=== PATIENT | male | born 1970 | race Caucasian/White ===

== ENCOUNTER 2018-05-19 12:39 | Outpatient (CLI) | payer SELFPAY ==
--- NOTE | 2018-05-23 11:33 | W.PREOPHP ---
Date of service: 05/19/18 Assessment and Plan (1) Right rotator cuff tear: Current visit: No Status: Chronic Right rotator cuff repair with biceps tenodesis Details of surgery were discussed with patient as well as risks and pertinent anatomy. All questions were answered. History of Present Illness Chief Complaint: Right shoulder injury Narrative: [place] is a 47-year-old male who is been complaining of right shoulder pain since an injury he sustained back in November. This injury consisted of a instance where he was lifting a watermelon in a slightly elevated position away from his body when he felt a pop in his right shoulder. 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 Since then he is tried conservative treatment including ice and ibuprofen. He also has tried physical therapy which did help to an extent, but he has not gotten back to the point where he can fully use his right arm. He states that the pain overall has gotten a little bit better over time, however this is because he has avoided doing certain things, and is using his left hand for a lot of the activities he normally would use his right arm for. If he does try to use his right arm or gets it into a specific position, he does have significant right shoulder pain. He also has had an MRI which does show a rotator cuff tear of the supraspinatus, and also some biceps pathology on the MRI as well. Because he is failed conservative treatment and the MRI suggest surgical intervention will help his right shoulder, Dr. Jaffe suggest a right shoulder arthroscopy with rotator cuff repair and biceps tenodesis. Wellington is anxious to proceed. Pertinent Surgical Information Patient does have a history of PTSD with no history of anesthesia since this diagnosis. He states that previous to the diagnosis, he did wake up a little bit aggressive. He also has a history of severe psoriasis, for which she is on some immunosuppression medications. Dr. Jaffe is aware of these and is not concerned with the possibility of increased risk of infection with this procedure. Both Dr. Jaffe and [place] have decided to proceed. Patient denies history of hypertension, CVA, [place], angina, COPD, renal or liver disorders, hepatitis, bleeding disorders, diabetes, immune or thyroid disorders. No complications from anesthesia. Review of Systems Constitutional Denies fever(s) ENT Denies dizziness and Denies sore throat Cardiovascular Denies chest pain, Denies palpitations and Denies dyspnea Respiratory Denies dyspnea Gastrointestinal Denies abdominal pain, Denies melena, Denies hematochezia, Denies diarrhea, Denies nausea and Denies vomiting Genitourinary Denies hematuria and Denies dysuria Neurologic Denies dizziness Endocrine Denies palpitations PFSH Medical History Asthma (Chronic) PTSD (post-traumatic stress disorder) (Chronic) Psoriasis (Chronic) Surgical History History of excision of pilonidal cyst (Chronic) Meds Home Medications Medication Instructions Recorded Confirmed Type apremilast 30 mg tablet 30 mg PO BID 04/07/18 04/07/18 History cyclosporine modified 100 mg 200 mg PO BID cap 04/07/18 05/19/18 History capsule fluticasone 44 mcg/actuation HFA 1 inh IH BID 04/07/18 05/19/18 History aerosol inhaler folic acid 1 mg tablet 1 mg PO DAILY 04/07/18 05/19/18 History albuterol sulfate [ProAir HFA] 2 puff INHALATION Q6H PRN 05/19/18 05/19/18 History methotrexate sodium 8 tab PO .WEEKLY 05/19/18 05/19/18 History Allergies Allergy/AdvReac Type Severity Reaction Status Date / Time animal dander Allergy Verified 05/19/18 13:01 house dust Allergy Verified 05/19/18 13:01 mold Allergy Verified 05/19/18 13:01 pollen extracts Allergy Verified 05/19/18 13:01 cephalexin [From Keflex] AdvReac Intermediate YEAST Verified 05/19/18 13:01 INFECTION Exam [facility] Head: normocephalic and atraumatic General nose exam: no nasal discharge Throat: uvula midline and no uvular edema Other: soft palate rises symmetrically, no erythema Eyes Conjunctivae: conjunctivae normal Sclera: sclerae normal Pupils: PERRL Resp Effort & Inspection: normal respiratory effort Auscultation: clear to auscultation bilaterally and no wheezes Cardio Rate: regular rate Rhythm: regular rhythm Heart Sounds: S1 normal, S2 normal and no murmurs
--- NOTE | 2018-05-23 11:42 | HPE_ITS ---
Date of service: 05/19/18 Assessment and Plan (1) Right rotator cuff tear: Current visit: No Status: Chronic Right rotator cuff repair with biceps tenodesis Details of surgery were discussed with patient as well as risks and pertinent anatomy. All questions were answered. History of Present Illness Chief Complaint: Right shoulder injury Narrative: Wellington is a 47-year-old male who is been complaining of right shoulder pain since an injury he sustained back in November. This injury consisted of a instance where he was lifting a watermelon in a slightly elevated position away from his body when he felt a pop in his right shoulder. 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 Since then he is tried conservative treatment including ice and ibuprofen. He also has tried physical therapy which did help to an extent, but he has not gotten back to the point where he can fully use his right arm. He states that the pain overall has gotten a little bit better over time, however this is because he has avoided doing certain things, and is using his left hand for a lot of the activities he normally would use his right arm for. If he does try to use his right arm or gets it into a specific position, he does have significant right shoulder pain. He also has had an MRI which does show a rotator cuff tear of the supraspinatus, and also some biceps pathology on the MRI as well. Because he is failed conservative treatment and the MRI suggest surgical intervention will help his right shoulder, Dr. aJffe suggest a right shoulder arthroscopy with rotator cuff repair and biceps tenodesis. [place] is anxious to proceed. Pertinent Surgical Information Patient does have a history of PTSD with no history of anesthesia since this diagnosis. He states that previous to the diagnosis, he did wake up a little bit aggressive. He also has a history of severe psoriasis, for which she is on some immunosuppression medications. Dr. Jaffe is aware of these and is not concerned with the possibility of increased risk of infection with this procedure. Both Dr. Jaffe and [place] have decided to proceed. Patient denies history of hypertension, CVA, [place], angina, COPD, renal or liver disorders, hepatitis, bleeding disorders, diabetes, immune or thyroid disorders. No complications from anesthesia. Review of Systems Constitutional Denies fever(s) ENT Denies dizziness and Denies sore throat Cardiovascular Denies chest pain, Denies palpitations and Denies dyspnea Respiratory Denies dyspnea Gastrointestinal Denies abdominal pain, Denies melena, Denies hematochezia, Denies diarrhea, Denies nausea and Denies vomiting Genitourinary Denies hematuria and Denies dysuria Neurologic Denies dizziness Endocrine Denies palpitations PFSH Medical History Asthma (Chronic) PTSD (post-traumatic stress disorder) (Chronic) Psoriasis (Chronic) Surgical History History of excision of pilonidal cyst (Chronic) Meds Home Medications Medication Instructions Recorded Confirmed Type apremilast 30 mg tablet 30 mg PO BID 04/07/18 04/07/18 History cyclosporine modified 100 mg 200 mg PO BID cap 04/07/18 05/19/18 History capsule fluticasone 44 mcg/actuation HFA 1 inh IH BID 04/07/18 05/19/18 History aerosol inhaler folic acid 1 mg tablet 1 mg PO DAILY 04/07/18 05/19/18 History albuterol sulfate [ProAir HFA] 2 puff INHALATION Q6H PRN 05/19/18 05/19/18 History methotrexate sodium 8 tab PO .WEEKLY 05/19/18 05/19/18 History Allergies Allergy/AdvReac Type Severity Reaction Status Date / Time animal dander Allergy Verified 05/19/18 13:01 house dust Allergy Verified 05/19/18 13:01 mold Allergy Verified 05/19/18 13:01 pollen extracts Allergy Verified 05/19/18 13:01 cephalexin [From Keflex] AdvReac Intermediate YEAST Verified 05/19/18 13:01 INFECTION Exam [facility] Head: normocephalic and atraumatic General nose exam: no nasal discharge Throat: uvula midline and no uvular edema Other: soft palate rises symmetrically, no erythema Eyes Conjunctivae: conjunctivae normal Sclera: sclerae normal Pupils: PERRL Resp Effort & Inspection: normal respiratory effort Auscultation: clear to auscultation bilaterally and no wheezes Cardio Rate: regular rate Rhythm: regular rhythm Heart Sounds: S1 normal, S2 normal and no murmurs
== END 2018-05-19 12:59 ==
PROVIDERS: PCP Nurse Practitioner Family; Visit Provider Student in an Organized Health Care Education/Training Program
DX: S46.011D Strain of muscle(s) and tendon(s) of the rotator cuff of right shoulder, subsequent encounter (principal); Z01.818 Encounter for other preprocedural examination
CPT/HCPCS: NC

== ENCOUNTER 2018-05-25 09:12 | Day surgery (SDC) | payer OTHER, SELFPAY ==
[2018-05-25 09:50] VITALS: BP 142/87; PULSE 89; RESP 18; TEMP 36.3; O2SAT 97
[2018-05-25] MEDS: Lactated Ringers 1,000 ML 80 ML IV (10:15)
[2018-05-25] MEDS: Midazolam 2 MG/2 ML VIAL IJ (12:45)
[2018-05-25] MEDS: Bupivacaine LIPOSOME/PF 133 MG/10 ML VIAL IJ (12:45)
[2018-05-25] MEDS: Bupivacaine 0.5% Pres-Free 10 ML VIAL IJ (12:45)
--- NOTE | 2018-05-25 13:50 | PDOC.ANES ---
Date of service: 05/25/18 Time of Service: 13:50 Anesthesia Note Report Anesthesia Note: Michael presented for rotator cuff repair today in his usual health with no complaints. His right Interscalene nerve block was completed and it was then noted that his HR was increased and irregular. He denies chest pain, SOB, N/V, and is not diaphoretic. He states he feels completely normal and is without symptoms. 12 Lead ECG confirmed new onset atrial fibrillation. I spoke with the patients PCP (Mazin Perla at [facility]) and plan made. She will see patient in her office on at 1300. 12 Lead as well as labs to include BMP, TSH and magnesium level will be sent to her office and she will make decisions from there. He will also be started on Aspirin 81mg QD and Metoprolol Tartrate 25mg every 12 hours to start today. Pt. advised to call 911 or present to nearest Emergency Room if he develops chest pain, SOB, N/V, syncope or pre-syncopal symptoms and he understands instructions. Patients father also present for discussion.
--- NOTE | 2018-05-25 13:56 | W.PM.DSUDISC ---
Discharge Plan Disposition Patient Disposition: HOME Condition: Good Discharge Details Reason For Visit: (R) RTC TEAR Attending Provider: Nickolas Jaffe Primary Care Provider: Mazin Perla Home Meds and New Rx's Prescriptions: New metoprolol tartrate 25 mg tablet 25 mg PO BID Qty: 60 RF: 0 aspirin 81 mg tablet,delayed release (DR/EC) 81 mg PO DAILY Qty: 30 RF: 3 Continue fluticasone [Flovent HFA] 44 mcg/actuation HFA aerosol inhaler 1 inh IH BID RF: 0 folic acid 1 mg tablet 1 mg PO DAILY RF: 0 cyclosporine modified 100 mg capsule 200 mg PO BID RF: 0 apremilast [Otezla] 30 mg tablet 30 mg PO BID RF: 0 methotrexate sodium 2.5 mg Tablet 8 tab PO .WEEKLY RF: 0 albuterol sulfate [ProAir HFA] 90 mcg/actuation Hfa Aerosol Inhaler 2 puff INHALATION Q6H PRNRF: 0 ibuprofen 800 mg Tablet 800 mg PO TID PRNRF: 0 Discharge Instructions Additional Instructions: Unfortunately, you developed an irregular heart rhythm - atrial fibrillation. This stopped us from performing your surgery today. You will start on Metoprolol and Aspirin for treatment and see your PCP on at 1pm. You may use a sling for support of the arm until the block wears off. After testing is complete, we will move forward with the surgery. Stand Alone Forms: Anes.Nerve Block Instructions, Reynaldo Regan (DSU) Equipment/Supplies: Sling Activity:: Activity as Tolerated Diet:: As Tolerated Discharge Orders Discharge Orders: Discharge Order (Routine); Ordered 05/25/18 Ordered By: Nickolas Jaffe DS: Diagnosis Discharge Diagnosis (1) Atrial fibrillation: Status: Acute Asessment and Plan: Elicited during preoperative evaluation on day of surgery for R shoulder, 05/25/18
--- NOTE | 2018-05-25 13:57 | ANES_ITS ---
Date of service: 05/25/18 Time of Service: 13:50 Anesthesia Note Report Anesthesia Note: Michael presented for rotator cuff repair today in his usual health with no complaints. His right Interscalene nerve block was completed and it was then noted that his HR was increased and irregular. He denies chest pain, SOB, N/V, and is not diaphoretic. He states he feels completely normal and is without symptoms. 12 Lead ECG confirmed new onset atrial fibrillation. I spoke with the patients PCP (Mazin Perla at [facility]) and plan made. She will see patient in her office on at 1300. 12 Lead as well as labs to include BMP, TSH and magnesium level will be sent to her office and she will make decisions from there. He will also be started on Aspirin 81mg QD and Metoprolol Tartrate 25mg every 12 hours to start today. Pt. advised to call 911 or present to nearest Emergency Room if he develops chest pain, SOB, N/V, syncope or pre-syncopal symptoms and he understands instructions. Patients father also present for discussion.
[2018-05-25] MEDS: Metoprolol 25 MG TAB PO (14:15)
[2018-05-25] MEDS: Aspirin 81 MG CHEW PO (14:15)
[2018-05-25 14:48] LABS: Anion Gap 11.2 mmol/L (3-11); BUN 10 mg/dL (7-18); CO2 23.8 mmol/L (21.0-32.0); CREATININE 0.86 mg/dL (0.70-1.30); Calcium 8.6 mg/dL (8.5-10.1); Chloride 104 mmol/L (98-107); Glucose 188 mg/dL (70-100); Magnesium 1.8 mg/dL (1.8-2.4); Sodium 139 mmol/L (136-145)
[2018-05-25 15:37] LABS: Troponin I < 0.02 ng/mL (0.00-0.06)
== END 2018-05-25 14:43 | disposition home or self-care (01) ==
PROVIDERS: Nurse Anesthetist, Certified Registered; PCP Nurse Practitioner Family; Visit Provider Student in an Organized Health Care Education/Training Program
DX: M75.101 Unspecified rotator cuff tear or rupture of right shoulder, not specified as traumatic (principal); Z53.09 Procedure and treatment not carried out because of other contraindication; I48.91 Unspecified atrial fibrillation
CPT/HCPCS: 29827; 36415; 76942; 80048; 83735; 84443; 84484; 99211; J2250; L3650

== ENCOUNTER 2018-05-25 15:10 | Emergency (ER) | payer OTHER, SELFPAY ==
[2018-05-25 15:15] VITALS: BP 141/92; PULSE 114; RESP 14; TEMP 36.7; O2SAT 95
--- NOTE | 2018-05-25 15:31 | NUR.NOTE ---
Nursing Note: 1454 PT PREVIOUSLY DISCHARGED FROM [facility] S/P ANTICIPATED SURGERY FOR WHICH WAS CANCELLED DUE TO NEW AFIB. SEE NOTES. PRIOR TO DISCHARGE PT RECEIVED METOPROLOL 25 MG PO AND ASPIRIN 81 MG PO ORDERED BY THE MD. VSS STABLE 140/83, HR 87, RA SAT 95%, T36.4, RR 18. PT DRESSED SELF AND GOT READY FOR DISCHARGE FROM [facility]. ESCORTED PT OUT TO [facility]. At 1454 PT SHOWED BACK UP AT THE [facility] WITH SOB AND 5/10 CHEST PAIN. PT WHEELED BACK INTO UNIT WHERE HE WAS HOOKED UP TO MONITORS AND VS TAKEN T36, 135/94, RR 24, HR IRREGULAR 85-125, RA SAT 97%. JD LUMP ROLLER NOTIFIY AND CAME TO EVALUATE PT. IT WAS DECIDED THE PT SHOULD BE EVALUATED IN THE ED. PT TRANSPORTED TO ED VIA STRETCHER FOR FURTHER EVALUATION.
--- NOTE | 2018-05-25 15:35 | DI.RAD_ITS ---
SYMPTOMS/DIAGNOSIS: NEW ONSET A-FIB, PALPITATIONS PA AND LATERAL CHEST: There are no prior comparison exams. The lungs are suboptimally inflated, but appear clear. The heart size is normal. IMPRESSION: Negative chest x-ray.
[2018-05-25 15:48] VITALS: RESP 18
[2018-05-25 15:52] LABS: Abs Immature Grans 0.22 k/cumm (0.0-0.09); Absolute Basophil Count 0.04 k/cumm (0.0-0.2); Absolute Eosinophil Count 0.26 k/cumm (0.0-0.7); Absolute Monocyte Count 1.29 k/cumm (0.11-0.7); Basophils % 0.3; Eosinophils % 1.9; HGB 17.3 g/dL (13.5-17.5); Immature Grans % 1.6; Lymphocytes % 16.2; Mean Corp. HGB Concentration 35.3 g/dL (32.0-36.0); Mean Corpuscular Hemoglobin 32.2 pg (27.0-33.0); Mean Corpuscular Volume 91.2 fL (80-95); Mean Platelet Volume 9.6 fL (8.0-11.0); Monocytes % 9.3; Neutrophils % 70.7; Platelet Count 269 x1000/uL (130-400); RBC 5.37 m/cumm (4.50-6.00); RBC Distribution Width 13.8 % (11.8-14.1); White Blood Cell Count 13.92 k/cumm (4.4-10.8)
--- NOTE | 2018-05-25 15:54 | ED.GENADUL_ITS ---
Discharge Plan Disposition Patient Disposition: HOME Condition: Fair Discharge Details Chief Complaint: Chest Pain Clinical Impression: Atrial fibrillation Primary Care Provider: Mazin Perla ED Provider: Shruthi Landers Home Meds and New Rx's Prescriptions: New apixaban [Eliquis] 5 mg tablet 5 mg PO BID Qty: 20 RF: 0 Continue fluticasone [Flovent HFA] 44 mcg/actuation HFA aerosol inhaler 1 inh IH BID RF: 0 folic acid 1 mg tablet 1 mg PO DAILY RF: 0 cyclosporine modified 100 mg capsule 200 mg PO BID RF: 0 apremilast [Otezla] 30 mg tablet 30 mg PO BID RF: 0 methotrexate sodium 2.5 mg Tablet 8 tab PO .WEEKLY RF: 0 albuterol sulfate [ProAir HFA] 90 mcg/actuation Hfa Aerosol Inhaler 2 puff INHALATION Q6H PRNRF: 0 metoprolol tartrate 25 mg tablet 25 mg PO BID Qty: 60 RF: 0 Discontinued ibuprofen 800 mg Tablet 800 mg PO TID PRNRF: 0 aspirin 81 mg tablet,delayed release (DR/EC) 81 mg PO DAILY Qty: 30 RF: 3 Discharge Instructions Instructions: Atrial Fibrillation (ED) Additional Instructions: Please take Eliquis as prescribed for anticoagulation. Metoprolol as prescribed by primary care provider for rate control. Please keep upcoming appointment with primary care. Do not take antiinflammatories while on anticoagulant (no Ibuprofen, Motrin, Aleve, etc.) If you develop chest pain, shortness of breath, headache, visual changes, please seek care urgently once again. Please take care while on anticoagulation as this does increase your risk of bleeding. If you have evidence of bleeding seek care urgently once again. Referrals: Mazin Perla [Primary Care Provider] - Discharge Data Discharge Date/Time-TO BE ENTERED AT DEPARTURE: 05/25/18 18:44 Medical Decision Making <John Reyes NP - Last Filed: 05/27/18 09:41> ECG is read as a-fib. Plan to establish IV and evaluate labs including TSH, and chest x-ray. Will administer Klonopin for the anxiety. After lab work returns we will consult cardiology for starting Cardizem and anticoagulation. ECG Data Attestation: I personally reviewed and interpreted this ECG (s) as follows: Interpretation: Reviewed with Dr. Jean. A-fib with no acute ST changes. <TALA Pan - Last Filed: 05/25/18 22:54> Patient 39-year-old male, care transition myself by Gabe Reyes NP, for evaluation of new onset atrial fibrillation. Patient reports around 1:00 this afternoon, while receiving a nerve block prior to right shoulder surgery, he developed chest pressure and palpitations. At the time of my evaluation, patient reports that he is completely a symptomatic. He is feeling quite well. No chest pressure, no feeling of palpitations. The symptoms initially began patient was noted to be in atrial fibrillation. No previous diagnosis of atrial fibrillation. At this point, patient continues to be in atrial fibrillation on the monitor with a heart rate around 105. Patient's medical history is significant for anxiety, psoriasis, asthma, PTSD. 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 Reports that while he has had chest discomfort with anxiety historically, he has never had palpitations that he experienced today. Patient was turned over to myself with labs pending. Patient's white count is noted to be minimally elevated but otherwise no acute findings. Troponin is less than 0.02. TSH is normal. Patient is going for a chest x-ray at this time. Will consult cardiology to discuss. CXR reviewed by radiologist. Lung min are clear bilaterally. No focal pulmonary consolidation is present. The cardiac silhouete is within normal limits. Costophrenic angles are sharp. Bony structures appear unremarkable. Consulted with Dr. Baca. He questioned if cardioversion could be preformed. However, as the patient was noted to be in afib on the monitor when he first presented and had been asymptomaic prior to this, I am unable to determine onset of afib. He is currently still in afib but is asymptomatic. Dr. Baca advised that the Metoprolol that patient was placed on by PCP is appropriate. He did advise beginning anticoagulation so that he may be cardioverted in the future. Advised f/u with cardiology in 2 weeks. Patient placed on primary care physician list for cadiology follow up. Discussed recommendations with the patient. We discussed risks/benefits of anticoagulation. Patient will begin on Eliquis. Discussed what to avoid when on this medication. He already has appointment in 2 days with PCP. Will discharge with medication for tonight and tomorrow morning. He was given strict return precautions. At this time, HR is around 100, he continues to be asymptomatic. All of his questions and concerns were addressed, he is in agreement with this plan. HPI <John Reyes NP - Last Filed: 05/27/18 09:41> General Date/Time Provider Initiated Documentation: 05/25/18 15:24 . Limitations to Documentation: no limitations . Information obtained by: patient and family . History of Present Illness 47 year old M presents to the emergency department with the chief complaint of palpitations with chest pressure., HPI Narrative: 47 y/o male here with c/o palpitations and chest pressure. Michael was brought over by anesthesia after he was noted to convert into a- fib prior to his OR case. He was in today to have shoulder surgery. He was prepped with nerve block. Shortly after as noted to be in a-fib. He has an underlying anxiety disorder for which he takes Klonopin for and which he has not needed for over a year. He tells me this feels different than his usual panic attack. He does not particularly care how the Klonopin makes him feel, basically drowsy. He denies cp and describes it more like pressure with associated sob. He denies any cardiac history. His pcp was called and Metoprolol was ordered which he did have PO while with anesthesia. Anesthesia reported he became panicky once leaving the hospital when he went out into the cold air. Pt reports being panicky the entire visit. Pt brought in to Ed for new onset AFib. Related Data Home Medications Medication Instructions Recorded Confirmed apremilast 30 mg tablet 30 mg PO BID 04/07/18 05/25/18 cyclosporine modified 100 mg 200 mg PO BID cap 04/07/18 05/25/18 capsule fluticasone 44 mcg/actuation HFA 1 inh IH BID 04/07/18 05/25/18 aerosol inhaler folic acid 1 mg tablet 1 mg PO DAILY 04/07/18 05/25/18 albuterol sulfate [ProAir HFA] 2 puff INHALATION Q6H PRN 05/19/18 05/25/18 methotrexate sodium 8 tab PO .WEEKLY 05/19/18 05/25/18 apixaban [Eliquis] 5 mg PO BID #20 tab 05/25/18 metoprolol tartrate 25 mg PO BID #60 tab 05/25/18 05/25/18 Previous Rx's Medication Instructions Recorded apixaban [Eliquis] 5 mg PO BID #20 tab 05/25/18 metoprolol tartrate 25 mg PO BID #60 tab 05/25/18 Allergies Allergy/AdvReac Type Severity Reaction Status Date / Time amoxicillin [From Augmentin] Allergy Intermediate Unverified 05/25/18 15:23 clavulanic acid Allergy Intermediate Unverified 05/25/18 15:23 [From Augmentin] animal dander Allergy Verified 05/19/18 13:01 house dust Allergy Verified 05/19/18 13:01 mold Allergy Verified 05/19/18 13:01 pollen extracts Allergy Verified 05/19/18 13:01 cephalexin [From Keflex] AdvReac Intermediate YEAST Verified 05/19/18 13:01 INFECTION General Stated Complaint: Chest Pain MALINI: 3 Review of Systems <John Reyes NP - Last Filed: 05/27/18 09:41> Eyes Reports system reviewed and no additional complaints, except as docu ENT Reports system reviewed and no additional complaints, except as docu Cardiovascular Reports palpitations Respiratory Reports other (sob) Gastrointestinal Reports system reviewed and no additional complaints, except as docu Genitourinary Reports system reviewed and no additional complaints, except as docu Musculoskeletal Reports system reviewed and no additional complaints, except as docu Integumentary/Breasts Reports system reviewed and no additional complaints, except as docu Neurologic Reports system reviewed and no additional complaints, except as docu Psychiatric Reports system reviewed and no additional complaints, except as docu Endocrine Reports palpitations Hematologic/Lymphatic Reports system reviewed and no additional complaints, except as docu Exam <John Reyes NP - Last Filed: 05/27/18 09:41> Const General: cooperative, comfortable and no acute distress Nutritional Appearance: overweight Orientation: alert, awake and oriented x3 HENMT Head: atraumatic Ears: hearing grossly normal bilaterally and external ears normal General nose exam: external nose normal and nares normal Mouth: moist mucous membranes Eyes General: appearance normal, both eyes and all related structures Neck Neck: normal visual inspection and full ROM Chest Chest: normal inspection of the chest Resp Auscultation: bronchovesicular breath sounds bilaterally Cardio Jugular venous pressure: no JVD Rate: regular rate Rhythm: abnormal rhythm irregularly irregular Heart Sounds: no murmurs GI Inspection: normal to inspection Palpation: soft and nontender Back/Spine/Pelvis Back: no CVA tenderness and No back tenderness Skin General skin exam: no rashes or lesions noted Neuro General: alert, awake, oriented x3 and gait normal Extrem General: normal to inspection, full ROM and normal capillary refill Psych Appearance: grossly normal Mental Status: mental status grossly normal Speech and Movement: speech and movement normal Mood: anxious mood Affect: normal affect Attitude: cooperative Thought Process: normal Thought Content: normal Insight: insight good Judgment: judgment good Course <John Reyes NP - Last Filed: 05/27/18 09:41> Vital Signs Temperature 36.7 C 05/25/18 15:15 Pulse 114 H 05/25/18 15:15 Respiratory Rate 14 05/25/18 15:15 Blood Pressure 141/92 H 05/25/18 15:15 Pulse Oximetry 95 05/25/18 15:15 Temperature 36.7 C 05/25/18 15:15 Temperature Source Temporal Artery Scan 05/25/18 15:15 Pulse 114 H 05/25/18 15:15 Respiratory Rate 14 05/25/18 15:15 Blood Pressure 141/92 H 05/25/18 15:15 Blood Pressure Position Sitting 05/25/18 15:15 Pulse Oximetry 95 05/25/18 15:15 Oxygen Delivery Method Room Air 05/25/18 15:15 Oxygen Flow Rate 0 05/25/18 15:15 Pain Level 0 05/25/18 15:15 Sign Out <John Reyes NP - Last Filed: 05/27/18 09:41> Sign Out Data: Sign Out Comment: Discussed with Shruthi GARZA. She agrees to disposition patient. Last updated by John Reyes NP at 05/25/18 16:24
[2018-05-25 16:00] LABS: Absolute Lymphocyte Count 2.26 k/cumm (1.2-3.4); Absolute Neutrophil Count 9.84 k/cumm (1.2-6.7)
[2018-05-25 16:13] LABS: TSH 2.32 uIU/mL (0.358-3.74)
[2018-05-25 16:18] LABS: ALT 130 U/L (12-78); AST 66 U/L (15-37); Albumin 3.4 g/dL (3.4-5.0); Alkaline Phosphatase 66 U/L (46-116); Anion Gap 10.6 mmol/L (3-11); BUN 10 mg/dL (7-18); Bilirubin, Total 0.7 mg/dL (0.2-1.0); CO2 25.4 mmol/L (21.0-32.0); CREATININE 0.93 mg/dL (0.70-1.30); Calcium 8.6 mg/dL (8.5-10.1); Chloride 103 mmol/L (98-107); Glucose 222 mg/dL (70-100); Magnesium 1.8 mg/dL (1.8-2.4); NT-proBNP 234 pg/mL; Sodium 139 mmol/L (136-145)
[2018-05-25 16:19] LABS: D-Dimer 233 ng/mlFEU (<500); Troponin I < 0.02 ng/mL (0.00-0.06)
[2018-05-25 17:05] VITALS: RESP 20
--- NOTE | 2018-05-25 17:21 | DI.VRAD_ITS ---
EXAM: XR Chest, 2 Views EXAM DATE/TIME: 05/25/2018 3:37 PM CLINICAL HISTORY: 47 years old, male; Signs and symptoms; Other: New onset afib palpitoons TECHNIQUE: XR of the chest, 2 views. COMPARISON: No relevant prior studies available. FINDINGS: The lung min are clear bilaterally. No focal pulmonary consolidation is present. The cardiac silhouette is within normal limits. The costophrenic angles are sharp. The bony structures appear unremarkable. IMPRESSION: No evidence of acute cardiopulmonary disease. Dictated and Authenticated by: Charly Guajardo MD. Ordering:DEB RESENDEZ MD
[2018-05-25] MEDS: Apixaban 5 MG TAB 10 MG PO (18:47)
[2018-05-25 18:48] VITALS: BP 160/98; PULSE 78; RESP 18
[2018-05-25] MEDS: Metoprolol 25 MG TAB 50 MG PO (18:48)
== END 2018-05-25 18:44 | disposition home or self-care (01) ==
PROVIDERS: Nurse Practitioner Family; Emergency Provider Physician Assistant; PCP Nurse Practitioner Family
DX: I48.91 Unspecified atrial fibrillation (principal)
CPT/HCPCS: 36415; 80053; 93005; 96360; 96361; 99285; 71046; 83735; 83880; 84443; 84484; 85025; 85379; 93010

== ENCOUNTER 2018-06-09 09:59 | Outpatient (CLI) | payer MEDICAID, SELFPAY | END 2018-06-09 10:19 | PROVIDERS: PCP Nurse Practitioner Family; Visit Provider Student in an Organized Health Care Education/Training Program | DX: I48.0 Paroxysmal atrial fibrillation (principal); I10 Essential (primary) hypertension; F17.200 Nicotine dependence, unspecified, uncomplicated | CPT/HCPCS: 93005; 93010 ==

== ENCOUNTER 2018-07-02 08:00 | Outpatient (CLI) | payer MEDICAID, SELFPAY ==
--- NOTE | 2018-08-03 20:54 | CER_ITS ---
Date of Dictation: August 03, 2018 Study Indication: Atrial fibrillation. Requesting Provider: Oseas Baca M.D. Findings: The patient was monitored for 30 days. The patient was in atrial fibrillation 19% of the time. Average heart rate in atrial fibrillation 100 bpm. Longest episode lasted 7 hours and 28 minutes. There were no pauses greater than 3 seconds. There was no higher degree heart block. There were 9 patient events. Five events correlated with atrial fibrillation with rapid ventricular response. All other events did not correlate with arrhythmias. Final Interpretation: Paroxysmal atrial fibrillation. Rapid ventricular response only during the first part of the recording with average heart rate in the 110's. Good rate control towards the end of the recording with average heart rate in the 80's.
== END 2018-07-02 08:20 ==
PROVIDERS: PCP Nurse Practitioner Family; Visit Provider Student in an Organized Health Care Education/Training Program
DX: I48.0 Paroxysmal atrial fibrillation (principal); I47.2 Ventricular tachycardia
CPT/HCPCS: 93270

== ENCOUNTER 2018-08-11 08:11 | Outpatient (CLI) | payer MEDICAID, SELFPAY ==
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
== END 2018-08-11 08:31 ==
PROVIDERS: PCP Nurse Practitioner Family; Visit Provider Student in an Organized Health Care Education/Training Program
DX: M75.121 Complete rotator cuff tear or rupture of right shoulder, not specified as traumatic (principal); S46.011D Strain of muscle(s) and tendon(s) of the rotator cuff of right shoulder, subsequent encounter; Z01.818 Encounter for other preprocedural examination
CPT/HCPCS: NC

== ENCOUNTER 2018-08-17 05:53 | Day surgery (SDC) | payer OTHER, SELFPAY ==
[2018-08-17] VITALS (7 sets, daily range): BP systolic 105–132; BP diastolic 58–83; PULSE 60–72; RESP 18–21; TEMP 36.2–36.8; O2SAT 93–100
[2018-08-17] MEDS: Lactated Ringers 1,000 ML 80 ML IV ×2 (06:42→09:38)
--- NOTE | 2018-08-17 07:18 | W.PM.DSUDISC ---
Discharge Plan Disposition Patient Disposition: HOME Condition: Good Discharge Details Reason For Visit: Right Rotator Cuff Tear Attending Provider: Nickolas Jaffe Primary Care Provider: Mazin Perla Home Meds and New Rx's Prescriptions: New celecoxib 200 mg capsule 200 mg PO BID PRN (Reason: pain) Qty: 60 RF: 1 acetaminophen 500 mg capsule 1,000 mg PO Q8H PRN (Reason: pain) Qty: 90 RF: 0 oxycodone 5 mg tablet 5 mg PO Q4H Qty: 18 RF: 0 Continued folic acid 1 mg tablet 1 mg PO DAILY RF: 0 metoprolol tartrate 25 mg tablet 50 mg PO HS RF: 0 ProAir HFA 90 mcg/actuation Hfa Aerosol Inhaler 2 puff INHALATION Q6H PRNRF: 0 Eliquis 5 mg tablet 5 mg PO BID Qty: 20 RF: 0 metformin 500 mg Tablet 500 mg PO BID RF: 0 diltiazem HCl 120 mg Capsule,Extended Release 12 Hr 120 mg PO DAILY RF: 0 methotrexate 2.5 mg/mL Solution 0.8 ml .QWEEKLY RF: 0 metoprolol succinate 100 mg Cap,Sprinkle,Er 24hr Dose Pack 100 mg PO DAILY RF: 0 Advair HFA 230-21 mcg/actuation Hfa Aerosol Inhaler 2 puff Inhalation BID RF: 0 Discharge Instructions Additional Instructions: Celebrex (Celecoxib) is a specialized anti-inflammatory. If it is not covered, you may take Ibuprofen 400-600mg every 8 hours as needed. Please be mindful that the use of an anti-inflammatory with your blood thinner can result in an increased bleeding risk. This risk is quite low but if you have any signs of blood in your sputum or bowel movement, you should stop the anti-inflammatory and call myself or your PCP. If you have any bleeding from a cut or other that won't stop plese proceed to the Emergency Department. Stand Alone Forms: Ld ricketts/RCR Referrals: Nickolas Jaffe MD [ [facility] STAFF PHYSICIAN] - Equipment/Supplies: Sling Activity:: Stay in Sling Remove Dressings/Wound Care:: 72 hours Shower/Bathe:: 72 hours Diet:: As Tolerated Discharge Orders Discharge Orders: Discharge Order (Routine); Ordered 08/17/18 Ordered By: Nickolas Jaffe DS: Diagnosis Discharge Diagnosis (1) Right rotator cuff tear: Status: Chronic
[2018-08-17] MEDS: Bupivacaine 0.5% Pres-Free 30 ML VIAL (07:22)
[2018-08-17] MEDS: Bupivacaine LIPOSOME/PF 133 MG/10 ML VIAL IJ ×2 (07:22→08:58)
[2018-08-17] MEDS: CLINDAMYCIN 600 MG/50 ML BAG 100 MG IVPB (07:50)
[2018-08-17] MEDS: Bupivacaine 0.25% Pres-Free 30 ML VIAL (08:58)
--- NOTE | 2018-08-17 13:18 | NUR.NOTE ---
Nursing Note:1319: THIS RN CLARIFIED WITH DR. BOND FOR PT. TO CONTINUE HIS ELIQUIS, AND NOT TO TAKE DISCHARGE INSTRUCTION INDICATED ASPIRIN 81 MG. THIS RN SPOKE DIRECTLY WITH PT. VIA PHONE TO CONFIRM THIS. AT 1317 08/17/18.
--- NOTE | 2018-08-17 13:21 | ROE_ITS ---
DATE OF SURGERY: August 17, 2018 PREOPERATIVE DIAGNOSIS: Right rotator cuff tear. POSTOPERATIVE DIAGNOSIS: Same. SURGERY: Arthroscopic right rotator cuff repair of subscapularis and supraspinatus, open subpectoral biceps tenodesis. SURGEON: Nickolas Jaffe M.D. STEEL PICKLER: Iker Portillo ANESTHESIA: Interscalene nerve block with general. ESTIMATED BLOOD LOSS: Minimal. FINDINGS: There was a notable tear in the upper third of the subscapularis tendon with medial displa cement of the biceps tendon. A single horizontal mattress suture was placed, reapproximating the upp ers subscapularis tendon to the lesser tuberosity. The supraspinatus also had an oblique-running tea r through its middle fibers and this was repaired at both the medial and lateral row. An open subpec feliz biceps tenodesis was performed. COMPLICATIONS: None. DISPOSITION: The patient was awakened from anesthesia and taken to the PACU in a stable condition. INDICATION FOR PROCEDURE: Wellington is a 47-year-old who has had persistent right shoulder pain and dysf unction, including weakness. MRI confirmed a rotator cuff tear. When I saw him in initial consultat ion he had failed conservative treatment options and desired to proceed with a rotator cuff repair. He was brought into the hospital for the rotator cuff repair back in April, but unfortunately deve loped atrial fibrillation prior to proceeding to the operating room. Therefore, the surgery was stop ped and he was evaluated by Cardiology and his primary care doctor and has been fully worked up and n ow fully treated for this. I then saw him back again in the office and revisited his shoulder. He c ontinued to have pain and dysfunction. He has a known rotator cuff tear. I reviewed the risk of rot ator cuff repair surgery, including bleeding, infection, pain, stiffness, weakness, damage to nerves and vessels, damage to muscles and tendons, need for repeat procedures, blood clot. Despite these ri sks, he elected to proceed. PROCEDURE DESCRIPTION: Wellington was greeted in the preoperative holding area. His identity was confirm ed and the correct side was identified and marked. The consent was reviewed with the patient and sig huy. The history and physical was updated. He was taken back to the PACU where an interscalene nerv e block was administered. After successful administration of the nerve block, he was taken to the Op erating Room. A general anesthetic was given and he was then positioned in the beach chair position. All bony prominences were well-padded. A pillow was placed under the knees. The head was placed i n a foam head-parish in a neutral position. The right arm was then prepped with ChloraPrep and drape d in a standard fashion. Prophylactic antibiotics in the form of Clindamycin were administered. A t eagle-out was performed for safe surgery. The right arm was then placed in a Spider2 pneumatic arm parish. The surface anatomy of the shoulder was drawn. The glenohumeral joint was insufflated with normal saline. A standard posterior portal was then made. The arthroscope was inserted atraumatically into the shoulder for excellent visualiza tion. Immediately we were able to see that the biceps tendon was medially displaced. There was tear ing of the upper portion of the subscapularis with the coracohumeral ligament displaced medially as w ell. There was some mild fraying seen within the anterior fibers of the supraspinatus and then the m ore central fibers of the supraspinatus appeared to be torn nearly completely from the greater tubero sity. There was some mild fraying of the labrum from 10 to 2 o'clock. There was no significant arth ritic change seen in the center portion of the glenoid or the humeral head. With the upper subscapul hosea in view, an anterior portal was positioned with a spinal needle. A 6.5 mm cannula was inserted. General debridement was performed of the anterior soft tissues and the rotator interval to better i dentify the subscapularis. It was also debrided anteriorly to free up any adhesions on the anterior surface of the subscapularis tendon. A secondary portal was then made over the anterolateral corner of the acromion with a spinal needle. This allowed a secondary portal with a 6.5 mm cannula to be us ed for a working portal for eventual repair of the subscapularis tendon. A probe was used to fully i dentify any other pathology in the shoulder. The labrum was stable. The biceps tendon was released with an electrocautery device for a later subpectoral biceps tenodesis, given it was displaced. The subscapularis was fully identified and maneuvered and showed to be able to reproduce down to the les ser tuberosity quite well. A shaver was used to decorticate the upper portion of the lesser tuberosi ty. An awl was used, followed by the insertion of a 4.5 mm Mitek HEALIX anchor. Using the retrograd e suture passer device, ExpresSew II, the horizontal mattress suture was placed and in the upper port ion of the subscapularis tendon. This easily reduced the subscapularis tendon down to the lesser tub erosity. This was tied with standard arthroscopic knot-tying techniques. It was then tested to be s table to about 45 degrees of external rotation. The tendon appeared to be well attached to the bone. The coracohumeral ligament was now relaxed and not draped over the rotator interval. The remainde r of the labrum was debrided with electrocautery and a shaver. The frayed portions of the rotator cu ff articular surface of the supraspinatus tendon were debrided with the shaver. The scope and equipm ent was then removed. We then turned our attention to the subpectoral biceps tenodesis. A 2 cm incision was made within th e medial aspect of the arm overlying the long head of the biceps tendon at the level of the pectorali s major tendon insertion. This was incised sharply. Blunt dissection was taken down to the sheath a nd biceps tendon. The sheath was opened. The biceps tendon was identified within the groove and rem torito from without the arm. The groove of the biceps tendon was debrided and removed any soft tissue using a rasp. A Mitek Lupine anchor was inserted into the groove. One limb of each suture was then passed through the biceps tendon. This was done at the level of the musculotendinous junction for 1 cm. A locking suture was used for each limb. With these two limbs now in place, the free limbs of the sutures were then used to shuttle the suture down onto the bone, after excising the extra tendon. The tendon was docked onto the bone with good approximation. The suture was cut and the wound was irrigated. The tissue was closed with #2-0 Vicryl. The deep tissues and the periosteum were injecte d with a mixture of 10 cc's of 0.5% Bupivacaine and 10 cc's of Exparel. We then turned our attention back to the rotator cuff. The scope was inserted through the posterior portal into the subacromial portion of the shoulder. An anterior portal was made lateral to the CA l igament into the subacromial space. Visualization was obtained. An electrocautery device was used t o skeletonize the undersurface of the acromion. There was no significant anterolateral spurring. Th e rotator cuff was identified. Significant bursitis was seen. This bursa was removed with a blunt s haver and electrocautery. Two lateral portals were made. The first lateral portal was anterior, whi ch was saved from the earlier portion of the case. A second was a posterolateral portal. These were made with spinal needle localization. With these portals now placed, we had excellent visualization of the lateral portion of the rotator cuff. With the camera in the posterolateral portion, we were able to identify the small tearing of the rotator cuff. The tear actually seemed to progress oblique ly from lateral anterior to medial posterior. The fibers were identified and the tissue was debrided to where there was stable tissue seen. The greater tuberosity was debrided with a shaver to decorti lexus the greater tuberosity and also to remove any loose pieces of soft tissue that were in the area. Once this was performed, a single DePuy Mitek HEALIX anchor was placed just off the medial aspect o f the articular surface. The Ecato device was then used to pass two horizontal mattress sutures. Once these were placed, they nicely reapproximated the supraspinatus down to the bone. Given the e xtra tissue and for lateral coverage, I performed a lateral row. One suture limb from each suture wa s then placed into a lateral row. Two lateral row anchors were placed, one anterior and one posterio r. These were Mitek 4.75 mm knotless HEALIX anchors. These were tightened appropriately and fit int o the bone without difficulty. This had nice reapproximation of the rotator cuff tendon down to the tuberosity with no gapping and no visible articular surface seen. The anterior acromion was again re evaluated, which did not show any signs of significant spurring, and therefore no acromioplasty was p erformed. Excess fluid was removed from the shoulder. The scope and equipment were removed. The wo unds were then closed with a #4-0 Monocryl. They were dressed with Steri-Strips, 4x4's, ABD, Medipor e tape. He was placed into an abduction pillow sling. At the end of the case all counts were corre ct.
== END 2018-08-17 12:45 | disposition home or self-care (01) ==
PROVIDERS: PCP Nurse Practitioner Family; Visit Provider Student in an Organized Health Care Education/Training Program
PROC: (CPT 29827; principal; 2018-08-17 07:30)
PROC: (CPT 23430; 2018-08-17 07:30)
DX: S46.011A Strain of muscle(s) and tendon(s) of the rotator cuff of right shoulder, initial encounter (principal); X50.0XXA Overexertion from strenuous movement or load, initial encounter; Y99.0 Civilian activity done for income or pay; I48.0 Paroxysmal atrial fibrillation; Z79.01 Long term (current) use of anticoagulants; E11.9 Type 2 diabetes mellitus without complications; Z79.84 Long term (current) use of oral hypoglycemic drugs; F43.10 Post-traumatic stress disorder, unspecified; G89.18 Other acute postprocedural pain
CPT/HCPCS: 23430; 29827; 76942; J1100; J1885; J2250; J2405; L3670

== ENCOUNTER 2018-11-29 14:48 | Outpatient (CLI) | payer OTHER, SELFPAY ==
--- NOTE | 2018-11-29 14:17 | DI.RAD_ITS ---
SYMPTOMS/DIAGNOSIS: INJURY OF RIGHT SHOULDER S/P ROTATOR CUFF REPAIR RIGHT SHOULDER: Three views were obtained. There are mild hypertrophic degenerative changes of the acromioclavicular joint. No other significant bony or soft tissue abnormality seen.
== END 2018-11-29 15:08 ==
PROVIDERS: PCP Nurse Practitioner Family; Visit Provider Physician Assistant
DX: M25.511 Pain in right shoulder (principal); Z98.890 Other specified postprocedural states; M19.011 Primary osteoarthritis, right shoulder
CPT/HCPCS: 73030

== ENCOUNTER 2019-01-06 09:07 | Outpatient (CLI) | payer MEDICAID, SELFPAY ==
--- NOTE | 2019-02-07 11:26 | CER_ITS ---
DATE OF DICTATION: February 07, 2019 [employer] MONITOR REPORT 1. Monitor in place: January 06 - February 04, 2019 2. Baseline rhythm sinus. 3. Atrial fibrillation: atrial fibrillation noted on 35% of monitor total. 43% of this rapid atrial fibrillation, 57% of this rate-controlled. Atrial fibrillation average rate: 96 bpm. 4. Less than 1% ventricular ectopy. 5. Five automatically-detected events, one serious: atrial fibrillation with artifact. Seven stable during sinus rhythm +/- atrial flutter or atrial fibrillation. Four manually-detected events, durin g atrial flutter with variable conduction +/- PVC's, or sinus rhythm. 6. Lightheadedness and fatigue noted during atrial flutter.
== END 2019-01-06 09:27 ==
PROVIDERS: Visit Provider Student in an Organized Health Care Education/Training Program
DX: I48.91 Unspecified atrial fibrillation (principal)
CPT/HCPCS: 93270; 93005; 93010

== ENCOUNTER 2019-02-17 08:17 | Day surgery (SDC) | payer OTHER, SELFPAY ==
[2019-02-17] VITALS (7 sets, daily range): BP systolic 129–165; BP diastolic 77–97; PULSE 60–77; RESP 13–17; TEMP 36.2–36.7; O2SAT 93–98
[2019-02-17] MEDS: Lactated Ringers 1,000 ML 80 ML IV ×2 (09:01→11:41)
[2019-02-17] MEDS: Bupivacaine LIPOSOME/PF 133 MG/10 ML VIAL IJ (09:47)
[2019-02-17] MEDS: Bupivacaine 0.5% Pres-Free 30 ML VIAL (09:47)
[2019-02-17] MEDS: ceFAZolin 2 GM/50 ML BAG IVPB (10:14)
--- NOTE | 2019-02-17 13:57 | PDOC.DSDIS_ITS ---
Discharge Plan Disposition Patient Disposition: HOME Condition: Good Discharge Details Reason For Visit: R RTC Tear Attending Provider: Nickolas Jaffe Primary Care Provider: Mazin Perla Home Meds and New Rx's Prescriptions: New acetaminophen 500 mg tablet 1,000 mg PO Q8H PRN (Reason: pain) Qty: 60 RF: 3 oxycodone 5 mg tablet 5 mg PO Q4H Qty: 18 RF: 0 Continued metoprolol tartrate 25 mg tablet 25 mg PO ONCE PRNRF: 0 metoprolol succinate 100 mg tablet extended release 24 hr 100 mg PO HS Qty: 90 RF: 3 albuterol sulfate [ProAir HFA] 90 mcg/actuation Hfa Aerosol Inhaler 2 puff INHALATION Q6H PRNRF: 0 Siliq 210 mg/1.5 mL Syringe 210 mg SUBCUT Q2W RF: 0 celecoxib 200 mg capsule 200 mg PO BID PRN (Reason: pain) Qty: 60 RF: 1 Eliquis 5 mg tablet 5 mg PO BID Qty: 20 RF: 0 diltiazem HCl 120 mg Capsule,Extended Release 12 Hr 120 mg PO DAILY RF: 0 Advair HFA 230-21 mcg/actuation Hfa Aerosol Inhaler 2 puff Inhalation BID RF: 0 metformin 500 mg tablet 1,000 mg PO BID RF: 0 Discharge Instructions Stand Alone Forms: Anes.Nerve Block Instructions, Ld Curry w/RCR, DSU Post op Instructions, Reynaldo Regan (DSU) Referrals: Nickolas Jaffe MD [ [facility] STAFF PHYSICIAN] - Equipment/Supplies: Sling Activity:: Stay in sling Remove Dressings/Wound Care:: 72 hours Shower/Bathe:: 72 hours Diet:: Carb Counting Discharge Orders Discharge Orders: Discharge Order (Routine); Ordered 02/17/19 Ordered By: Nickolas Jaffe DS: Diagnosis Discharge Diagnosis (1) Right rotator cuff tear: Status: Acute
--- NOTE | 2019-02-18 07:27 | W.PM.OP ---
Date of service: 02/17/19 Time of Service: 12:28 Operative Note DATE OF PROCEDURE: 02/18/19 PRE-OP DIAGNOSIS: Rotator cuff tear, right shoulder POST-OP DIAGNOSIS: same PROCEDURE: - Arthroscopic Rotator Cuff Repair SURGEON: Nickolas Jaffe OPERATIONS RESEARCH SCIENTIST: Rosemarie Haddad ANESTHESIA: GETA and regional ESTIMATED BLOOD LOSS: 0 PATHOLOGY: none sent COMPLICATIONS: None Patient was transported to: PACU Patient's condition: stable Indications: I have seen Wellington in clinic for a painful shoulder. He underwent an initial rotator cuff repair in July and is doing very well. His motion had returned, his strength is getting better, and his pain was markedly improved. However, he inadvertently grabbed the full gallon of milk from the top of the fridge and when he pulled it off the shelf he felt something pop in his shoulder. Conservative treatments were tried, he continued to have increasing pain and weakness. Repeat MRI confirmed a recurrent rotator cuff tear. I discussed shoulder arthroscopy and procedures. I reviewed the risks of the procedures to include, but not limited to, bleeding, infection, pain, stiffness, damage to nerves or vessels, recurrence, hardware failure, blood clot. Despite these risks, the patient elected to proceed. Findings: A diagnostic arthroscopy was performed with the following findings: - Glenohumeral Joint: No arthritic changes - Labrum: No labral tear - Cuff: Elevation of the upper subscapularis into the anterior supraspinatus as one sleeve - Biceps: Biceps was previously removed - Subacromial: Scarring and inflammation seen throughout the subacromial space with a torn anterior supraspinatus Procedure Description: Wellington was greeted in the preoperative holding area where the correct side was identified and marked. The consent was reviewed with the patient and signed. The history and physical was updated. All questions were answered. He was taken back to the PACU for administration of an intrascalene nerve block. Wellington was then taken to the operating room. The patient was placed into the supine position on the operating room table. A general anesthetic was administered. Wellington was then positioned in the beach chair position. All bony prominences were well padded. The head was placed in a foam head of product in a neutral position. Prophylactic antibiotics in the form of [Cefazolin] were administered. The right arm/shoulder was then prepped with Chloraprep and draped in a standard fashion with stockinette and shoulder drape. A timeout to confirm correct identity, side and site, procedure, allergies, anesthesia, and medical concerns was performed. The arm was placed into a pneumatic parish, [id number]. The shoulder arthroscopy was then performed. The glenohumeral joint was injected with 20 cc of normal saline with good flow back. A standard posterior portal was made and the joint was entered atraumatically with a blunt arthroscope. Once inside we had good visualization of the structures of the glenohumeral joint. An anterior portal was established with spinal needle localization. A 6.5 mm cannula was inserted. A probe was then used to perform a diagnostic arthroscopy. There is noted to be [no significant cartilage damage of the glenoid humeral joint]. The labrum was [intact anteriorly and posteriorly]. There were [no loose bodies] in the inferior pouch. The superior rotator cuff was notably torn with the sutures and not sitting above the anchor over the greater tuberosity. The biceps tendon had been previously removed and was not present. The subscapularis looked to be intact and seem to move as a unit with internal and external rotation. However, there is no notable attachment to the superior portion of the lesser tuberosity and it seemed to be connected as a sling to the anterior supraspinatus.. The coracohumeral ligament was seen to be medialized indicating that the subscapularis was not correctly position. Using a shaver I debrided scar tissue from around the subscapularis. I left the coracohumeral ligament intact. I debrided the lesser tuberosity. Using all from the anterior portal I created the past 4 a single 4.5 mm Mytec Healix anchor. This was inserted without difficulty. 2 horizontal mattress sutures were then placed into the subscapularis which brought the subscapularis back onto the lesser tuberosity and also more correctly position the coracohumeral ligament. This was tested to 45 degrees of external rotation and showed no liftoff from the lesser tuberosity. The arthroscope was then inserted into the subacromial space. The 6.5 mm cannula was placed lateral to the CA ligament. A complete bursectomy is performed anteriorly, posteriorly, and laterally with electrocautery and shaver. This had excellent exposure of the rotator cuff. The bursal side rotator cuff was fully dissected with any scar tissue and this identified a tear anteriorly in the supra spinatus tendon. The previous sutures were seen. These were removed with bur and grabbers. Using a spinal needle a lateral portal was established. This became the viewing portal. There is limited real estate in this area and a single 4.5 mm Mytec Healix anchor was placed. This had excellent purchase into the bone. 2 horizontal mattress sutures were placed into the torn rotator cuff tendon tissue. Once this was placed there were then tied. While tying 1 of the sutures, it pulled out of the rotator cuff tissue. This still nicely reapproximated the more medial aspect of the rotator cuff tendon down to bone and the joint was still not visible. However, there was a free edge. Therefore, I placed a racking type suture into this free edge of rotator cuff tendon and placed into a knotless anchor, Mytec 4.75 mm knotless, over the lateral tuberosity. This reapproximated the tendon edge down to bone. The scope equipment was removed from the shoulder. Excess fluid was evacuated. The portal sites were closed with 3-0 Monocryl. The wounds were dressed with Steri-Strips, 4 x 4's, ABDs, Medipore tape. A sling was applied. The patient tolerated the procedure well and was returned to the Same Day Surgery area in a stable condition suffering no known complication.
== END 2019-02-17 14:40 | disposition home or self-care (01) ==
PROVIDERS: PCP Nurse Practitioner Family; Visit Provider Student in an Organized Health Care Education/Training Program
PROC: (CPT 29827; principal; 2019-02-17 10:30)
DX: S46.011A Strain of muscle(s) and tendon(s) of the rotator cuff of right shoulder, initial encounter (principal); X50.9XXA Other and unspecified overexertion or strenuous movements or postures, initial encounter; G89.18 Other acute postprocedural pain; L40.0 Psoriasis vulgaris; F17.210 Nicotine dependence, cigarettes, uncomplicated; E11.9 Type 2 diabetes mellitus without complications; I10 Essential (primary) hypertension
CPT/HCPCS: 29827; 76942; J0690; J1885; J2250; J2405; J3010; L3670

== ENCOUNTER 2020-03-09 11:59 | Outpatient (CLI) | payer OTHER, SELFPAY ==
--- NOTE | 2020-03-09 11:30 | DI.RAD_ITS ---
EXAM: XR SHOULDER RT COMPLETE 2+V CLINICAL HISTORY: right shoulder pain TECHNIQUE: 2D digital imaging was performed. COMPARISON: MR MRI RIGHT SHOULDER WO from 01/21/2019 FINDINGS: There is mild spurring at the AC joint and glenoid. An os acromiale is seen. There is prominence o f the lesser tuberosity. Humeral head is normally positioned. There are postsurgical lucencies in t he humeral head. IMPRESSION: Mild degenerative changes and os acromiale.
== END 2020-03-09 12:19 ==
PROVIDERS: PCP Nurse Practitioner Family; Referring Provider Nurse Practitioner Family; Visit Provider Physician Assistant Surgical
DX: M19.011 Primary osteoarthritis, right shoulder (principal); M25.811 Other specified joint disorders, right shoulder
CPT/HCPCS: 73030

== ENCOUNTER 2020-08-17 02:05 | Outpatient (CLI) | payer OTHER, SELFPAY ==
[2020-08-18 13:57] LABS: COVID-19 RT-PCR UVMMC Result Negative (Negative)
== END 2020-08-17 02:06 | disposition home or self-care (01) ==
LOC: LBO 02:06
PROVIDERS: PCP Nurse Practitioner Family; Visit Provider Student in an Organized Health Care Education/Training Program
DX: Z20.822 Contact with and (suspected) exposure to COVID-19 (principal); Z01.818 Encounter for other preprocedural examination
CPT/HCPCS: U0003

== ENCOUNTER 2020-08-22 09:49 | Day surgery (SDC) | payer MEDICAID, SELFPAY ==
[2020-08-22] VITALS (8 sets, daily range): BP systolic 87–129; BP diastolic 40–96; PULSE 62–93; RESP 18–24; TEMP 36.1–36.4; O2SAT 95–100
--- NOTE | 2020-08-22 07:46 | W.PM.DSUDISC ---
Discharge Plan Disposition Patient Disposition: HOME Condition: Good Discharge Details Reason For Visit: Left rotator cuff tear; biceps tendonitis;bursitis Attending Provider: Nickolas Jaffe Primary Care Provider: Mazin Perla Home Meds and New Rx's Prescriptions: New acetaminophen 500 mg tablet 1,000 mg PO Q8H PRN Qty: 90 RF: 0 oxycodone 5 mg tablet 5 mg PO Q4H PRN (Reason: severe post-operative pain) Qty: 18 RF: 0 Continued metoprolol tartrate 25 mg tablet 25 mg PO ONCE PRNRF: 0 Skyrizi 75 mg/0.83 mL syringe See Rx Instructions subcut PER PKG DIR RF: 0 Trulicity 0.75 mg/0.5 mL pen injector 0.75 mg subcut QWEEK RF: 0 metoprolol succinate 100 mg tablet extended release 24 hr 100 mg PO HS Qty: 90 RF: 3 albuterol sulfate [ProAir HFA] 90 mcg/actuation Hfa Aerosol Inhaler 2 puff INHALATION Q6H PRNRF: 0 Eliquis 5 mg tablet 5 mg PO BID Qty: 20 RF: 0 diltiazem HCl 120 mg Capsule,Extended Release 12 Hr 120 mg PO DAILY RF: 0 Advair HFA 230-21 mcg/actuation Hfa Aerosol Inhaler 2 puff Inhalation BID RF: 0 Discontinued acetaminophen 500 mg tablet 1,000 mg PO Q8H PRN (Reason: pain) Qty: 60 RF: 3 Discharge Instructions Stand Alone Forms: Ld Curry w/RCR Referrals: Nickolas Jaffe MD [ [facility] STAFF PHYSICIAN] - Equipment/Supplies: Sling Activity:: Stay in sling Remove Dressings/Wound Care:: 72 hours Shower/Bathe:: 72 hours Diet:: As Tolerated Discharge Orders Discharge Orders: Discharge Order (Routine); Ordered 08/22/20 Ordered By: Rosemarie Haddad DS: Diagnosis Discharge Diagnosis (1) Left rotator cuff tear: Status: Acute (2) Bursitis of left shoulder: Status: Acute (3) Biceps tendinitis of left shoulder: Status: Acute
[2020-08-22] MEDS: Lactated Ringers 1,000 ML 80 ML IV ×2 (10:40→15:13)
[2020-08-22] MEDS: ceFAZolin 2 GM/50 ML BAG IVPB (12:34)
[2020-08-22] MEDS: EPINEPHrine 30 MG/30 ML VIAL (13:18)
--- NOTE | 2020-08-22 20:51 | W.PM.OP ---
Date of service: 08/22/20 Time of Service: 14:16 Operative Note Operative Note DATE OF PROCEDURE: 08/22/20 PRE-OP DIAGNOSIS: Left Rotator Cuff Tear POST-OP DIAGNOSIS: same PROCEDURE: Arthroscopic Left Rotator Cuff Repair SURGEON: Nickolas Jaffe ELECTRICAL APPLIANCE REPAIRER: Shaun Nuñez ANESTHESIA TYPE: General LMA/ETT Refer to Anesthesia Record ESTIMATED BLOOD LOSS: 5 PATHOLOGY: none sent COMPLICATIONS: None Patient was transported to: PACU Patient's condition: stable Indications: I have seen Wellington in clinic for a painful shoulder. Pathology was confirmed based on MRI and exam findings. Nonoperative measures were exhausted but disability and pain persisted. I discussed shoulder arthroscopy and procedures. I reviewed the risks of the procedures to include, but not limited to, bleeding, infection, pain, stiffness, damage to nerves or vessels, recurrence, hardware failure, blood clot. Despite these risks, the patient elected to proceed. Findings: A diagnostic arthroscopy was performed with the following findings: Articular Side - Glenohumeral Joint: Very minimal arthritic changes of any - Labrum: Mild fraying of the labrum superiorly from 11-1 o'clock - Cuff: Complete tearing of the upper subscapularis and the entire supraspinatus with some partial involvement of infraspinatus avulsed off of the footprint - Biceps: Medial subluxation and fraying and partial tearing of the biceps tendon Subacromial Side - Bursal: Thickened bursa with notable tearing of the rotator cuff - Rotator Cuff: Complete tearing of the rotator cuff with no significant lamination or fraying - Mild anterolateral spurring Procedure Description: Wellington was greeted in the preoperative holding area where the correct side was identified and marked. The consent was reviewed with the patient and signed. The history and physical was updated. All questions were answered. Wellington was taken back to the PACU for administration of an intrascalene nerve block. He was then taken to the operating room. The patient was placed into the supine position on the operating room table. A general anesthetic was administered. Wellington was then positioned in the beach chair position. All bony prominences were well padded. The head was placed in a foam headend technician in a neutral position. Prophylactic antibiotics in the form of Cefazolin were administered. The left arm/shoulder was then prepped with Chloraprep and draped in a standard fashion with stockinette and shoulder drape. A timeout to confirm correct identity, side and site, procedure, allergies, anesthesia, and medical concerns was performed. The arm was placed into a pneumatic parish, [id number]. The shoulder arthroscopy was then performed. The glenohumeral joint was injected with 20 cc of normal saline with good flow back. A standard posterior portal was made and the joint was entered atraumatically with a blunt arthroscope. Once inside we had good visualization of the structures of the glenohumeral joint. An anterior portal was established with spinal needle localization. A 6.5 mm cannula was inserted. A probe was then used to perform a diagnostic arthroscopy. There is noted to be no significant cartilage damage of the glenoid humeral joint. The labrum was intact anteriorly and posteriorly with only some minor fraying. There were no loose bodies in the inferior pouch. The superior rotator cuff was completely detached from the tuberosity involving all the supraspinatus and a portion of the infraspinatus. The biceps tendon was frayed and torn and also medially displaced. The subscapularis avulsed off of the upper portion of the lesser tuberosity with minor medial retraction. Visualization was quite challenging as the tissue seem to come into the joint themselves. There is abundant amount of rotator cuff tissue as this rotator cuff appeared to avulsed off of the tuberosity. I established an anterolateral portal using spinal needle localization through the superior rotator cuff tear. A 7.5 mm cannula was placed became the working portal. I was able to place traction on the anterior rotator cuff, subscapularis, which help mobilize the tissues all the way for better visualization of the footprint and of the tendon. There was a walker attachment between the subscapularis and supraspinatus which was left in place. Rotator interval was released as was a portion of the MGHL for better visualization and manipulation of the subscapularis. His less tuberosity footprint was difficult to appreciate and seem to be may be chronically torn. However, the biceps tendon was sitting in the medial location and therefore performed a biceps tenotomy. It did not retract very far and stayed within the groove at the level of the lower lesser tuberosity and therefore I left it as is, biceps tenotomy. Using a shaver from both the anterior and lateral portals, I debrided the lesser tuberosity. I placed the camera on the anterior portal to visualize appropriate bone and surface preparation. A single 4.5 mm Mitek Healix advance anchor was then placed into the lesser tuberosity. 2 horizontal mattress sutures were then passed into the bulk of the subscapularis tendon. These were then tied to the anterior portal and showed excellent reapproximation of the subscapularis down the bone. This also help reduce over the supraspinatus. Any undersurface fraying was then debrided of the rotator cuff. The fraying seen from 11-1 o'clock of the superior labrum was also debrided as was the stump of the biceps tendon after previous tenotomy. The arthroscope was then inserted into the subacromial space. The 6.5 mm cannula was placed lateral to the CA ligament. A complete bursectomy is performed anteriorly, posteriorly, and laterally with electrocautery and shaver. This had excellent exposure of the rotator cuff. Using spinal needle localization a posterior lateral portal was established, this would be the primary viewing portal. The bursal side rotator cuff was largely intact, avulsed off the tuberosity, without any significant intratendinous tearing or laminations or fraying. There was a very small anterolateral spur. There was a small amount of infraspinatus still attached as it wraps around the tuberosity. I was able to easily reduce the supraspinatus down to bone if anything over reduce it. A shaver was used to debride the greater tuberosity for preparation prior to rotator cuff repair. This primarily was a supraspinatus tear with some involvement of the infraspinatus fibers as a wrap around the greater tuberosity. I then placed 2 Medial Row anchors, Mitek Vero tape anchors. One was placed anteriorly and one was placed posteriorly adjacent to the cartilage edge. These had excellent purchase in the bone. Using a passing suture I passed the sutures from each anchor into the anterior and posterior portions of the supraspinatus. These were placed just lateral to the musculotendinous junction. The sutures were passed out through the tendon anteriorly and posteriorly. I then performed a Vero seal technique. Using 1 suture limb from each of the anchors, I tied these together outside of the shoulder and then shuttled them back into the shoulder to create a suture running from anterior to posterior at the medial edge. This was with the Vero cord suture. This was shuttled down tight compressing the rotator cuff against the medial row. The remaining suture limbs from these 2 sutures were then tied together using a series of alternating half hitches. This nicely reapproximated the tendon down to the medial row. I then pulled one of the tape sutures from each anchor out the lateral portal. These were then incorporated into a 4.75 mm Mitek Healix knotless anchor. This anchor was then placed into the lateral aspect of the greater tuberosity pulling tight the tape limbs. This was repeated posteriorly to create a transosseous equivalent suture bridge type technique with compression of the rotator cuff against the tuberosity. There was some excess tissue posteriorly which seem to be a portion of the infraspinatus which was buckled. However, I did not find it necessary to replace any additional sutures without is unable to penetrate with my freer or probe with excellent reapproximation of the tendon against the tuberosity. All sutures were then cut. The scope equipment was removed from the shoulder. Excess fluid was evacuated. The portal sites were closed with 3-0 Monocryl. The wounds were dressed with Steri-Strips, 4 x 4's, ABDs, Medipore tape. A sling was applied. The patient tolerated the procedure well and was returned to the PACU in a stable condition suffering no known complication.
== END 2020-08-22 17:23 | disposition home or self-care (01) ==
LOC: SUR 09:50
PROVIDERS: PCP Nurse Practitioner Family; Visit Provider Student in an Organized Health Care Education/Training Program
PROC: (CPT 29827; principal; 2020-08-22 12:45)
DX: M75.52 Bursitis of left shoulder; M75.22 Bicipital tendinitis, left shoulder; M75.122 Complete rotator cuff tear or rupture of left shoulder, not specified as traumatic; G89.18 Other acute postprocedural pain; S43.432A Superior glenoid labrum lesion of left shoulder, initial encounter; X58.XXXA Exposure to other specified factors, initial encounter; F17.210 Nicotine dependence, cigarettes, uncomplicated; G47.33 Obstructive sleep apnea (adult) (pediatric); I48.0 Paroxysmal atrial fibrillation; J45.909 Unspecified asthma, uncomplicated; E11.9 Type 2 diabetes mellitus without complications
CPT/HCPCS: 29827; 76942; J0690; J1100; J1885; J2001; J2250; J2370; J2405

== ENCOUNTER 2021-01-28 02:54 | Outpatient (RCR) | payer MEDICAID, SELFPAY ==
--- NOTE | 2021-01-28 09:30 | HOLTER_ITS ---
APPROVED REPORT Conclusion There is a 48-hour monitor ordered for indication of paroxysmal atrial fibrillation. The patient was in atrial fibrillation for the entirety of the recording with an average heart rate o f 89 bpm. There was one episode of NSVT lasting 6 beats. There were rare PVCs. There were no patient recorded events.
== END 2021-02-26 23:59 | disposition home or self-care (01) ==
LOC: RT 02:54
PROVIDERS: PCP Nurse Practitioner Family; Visit Provider Internal Medicine Cardiovascular Disease
DX: I48.0 Paroxysmal atrial fibrillation (principal); I47.2 Ventricular tachycardia
CPT/HCPCS: 93225; 93226

== ENCOUNTER 2021-03-22 04:07 | Outpatient (CLI) | payer MEDICAID, SELFPAY ==
--- NOTE | 2021-03-22 | DI.US_ITS ---
APPROVED REPORT EXAM: Comprehensive 2D, Doppler, and color-flow Echocardiogram Patient Location: Out-Patient [facility] Operator: Leonor Bey RDCS (AE) Indications: Paroxysmal Atrial Fibrillation Other Information Study Quality: Adequate Conclusion Normal left ventricular wall thickness and chamber size. Estimated ejection fraction is 60 to 65%. Wa ll motion is normal Normal right ventricular size and systolic function Both atria are normal in size There is no significant valvular disease Patient was in atrial fibrillation throughout the test, rate mid 80s Wall motion Left Ventricle The left ventricle is normal size. The left ventricular systolic function is normal. The left ventric ular ejection fraction is within the normal range. There is normal left ventricular wall thickness. T here is normal LV segmental wall motion. There is no ventricular septal defect visualized. LVEF is 60 -65%. Right Ventricle The right ventricle is normal size. The right ventricular systolic function is normal. Atria The left atrium size is normal. The right atrium size is normal. The interatrial septum is intact wit h no evidence for an atrial septal defect. Aortic Valve The aortic valve is normal in structure. Aortic valve is trileaflet. There is no aortic valvular sten osis. No aortic regurgitation is present. Mitral Valve The mitral valve is normal in structure. No evidence of mitral valve stenosis. Trace to mild mitral r egurgitation. Tricuspid Valve The tricuspid valve is normal in structure. There is no tricuspid valve stenosis. Trace tricuspid reg urgitation. Unable to assess PA pressure. Bio-prosthetic tricuspid valve is present. Pulmonic Valve Pulmonic valve is not well visualized. There is no pulmonic valvular stenosis. Trace pulmonic regurgi tation. Great Vessels The aortic root is normal in size. Ascending aorta is not well visualized. Aortic arch is normal in c aliber. IVC is normal in size and collapses >50% with inspiration. Pericardium There is no pericardial effusion. 2D Dimensions IVSD d PLAX 0.99 cm M: 0.6-1.2 LV Vol A2C d MOD 108.4 mL LVPW d PLAX 0.90 cm M: 0.6 - 1.2 LV Vol A4C d MOD 109.5 mL LVID d PLAX 4.81 cm M: 4.2 - 5.8 LA vol/ BSA A2C s A-L 27.4 mL/m2 LVDs 3.25 cm M: 2.5 - 4.0 LA vol/ BSA A4C s A-L 25.1 mL/m2 Ao Root d 3.34 cm M: 3.1 - 3.7 LA Vol/ BSA Biplane s A-L 27.4 mL/m2 RA Area A4C 17.10 cm2 LA Area A4C s MOD 19.57 cm2 RA Vol/ BSA A4C s A-L 20.6 mL/m2 LA Area A2C s MOD 19.58 cm2 LV EF Teichholz 59.8 % LV EF A4C MOD 61.3 % LVEF (Singleton's) 59.74 % M: 52 - 72 LV EF A2C MOD 59.8 % LV Volume 80.28 mL M: 62 - 150 LV EF Biplane MOD 59.7 % LV Volume Index 36.82 mL/m2 M: 34 - 74 SV 65.79 mL LV Vol Biplane MOD 110.1 mL SV Index 30.11 mL/m2 FS 31.80 % M-Mode TAPSE 2.22 cm (M/F) >1.7 LV Diastology MV E' medial 0.138 (>0.07 m/s) MV E Vmax 1.11 (0.4-1.3 m/s) LV E/e MED 8.00 (<14) MV E' lateral 0.149 (>0.1 m/s) LV E/e LAT 7.40 (<14) MV E/E' medial 8.04 MV E/E' lateral 7.44 Aortic Valve LVOT Area 3.14 cm2 AoV Area Vmax 2.77 cm2 LVOT Vmax 1.23 m/s AoV Area/ BSA (Vmax) 1.27 cm2/m2 LVOT Mean Joseph. 0.76 m/s CARMEN Mean Joseph. 2.36 cm2 LVOT Peak Grad 6.1 mmHg CARMEN Mean Joseph. Index 1.08 cm2/m2 LVOT Mean Grad 2.8 mmHg LVOT VTI 0.237 m LVOT Diam s 2.00 cm AoV Vmax 1.39 m/s Velocity Ratio 0.88 AoV Mean Joseph. 1.01 m/s AoV Peak Grad 7.8 mmHg LVOT SV 74.56 mL AoV Mean Grad 4.5 mmHg AoV VTI 0.232 m AoV Area VTI 3.22 cm2 AoV Area/ BSA (VTI) 1.47 cm/m2 Mitral Valve MV DT 175 (160-240 msec) MV PHT 51 msec MV Area PHT 4.34 cm2 MV VTI 0.254 m MV Area VTI 2.94 (4.0-6.0 cm2) Pulmonary Valve PV Vmax 1.09 (0.5-1.5 m/s) RVOT Peak Gr. 1.84 mmHg PV Peak Grad 4.8 mmHg RVOT Mean Gr. 1.20 mmHg PV Mean Grad 2.8 mmHg RVOT VTI 0.138 m PV VTI 0.220 m RVOT Vmax 0.68 m/s
== END 2021-03-22 04:27 ==
PROVIDERS: PCP Nurse Practitioner Family; Visit Provider Internal Medicine Cardiovascular Disease
DX: I48.0 Paroxysmal atrial fibrillation (principal); Z95.3 Presence of xenogenic heart valve; I34.0 Nonrheumatic mitral (valve) insufficiency
CPT/HCPCS: 93306

== ENCOUNTER 2022-02-24 10:49 | Outpatient (CLI) | payer MEDICAID, SELFPAY ==
--- NOTE | 2022-02-24 10:45 | RT.EKG_ITS ---
APPROVED REPORT Exam: Resting ECG Reason for Exam: Atrial Fibrillation Patient Location: O HR:92 bpm ECG Measurements Heart Rate 92 AXIS GA [id number] P [id number] QRSd 86 QRS 54 QT 485 T -32 QTc 601 Conclusion Atrial fibrillation...? atrial activity Borderline low voltage, extremity leads...all extremity leads <0.6mV
== END 2022-02-24 10:50 | disposition home or self-care (01) ==
LOC: DI.CARD 10:50
PROVIDERS: PCP Nurse Practitioner Family; Visit Provider Internal Medicine Cardiovascular Disease
DX: I48.91 Unspecified atrial fibrillation (principal); R94.31 Abnormal electrocardiogram [ECG] [EKG]
CPT/HCPCS: 93010

== ENCOUNTER 2023-12-08 15:34 | Outpatient (CLI) | payer OTHER, MEDICAID, SELFPAY ==
--- NOTE | 2023-12-08 08:15 | DI.RAD_ITS ---
Exam(s) XR SHOULDER RT COMPLETE 2+V EXAM: XR SHOULDER RT COMPLETE 2+V CLINICAL HISTORY: RIGHT SHOULDER PAIN. TECHNIQUE: 2D digital imaging was performed of the right shoulder. Two images were obtained. Axill mauricio and Grashey views were obtained. COMPARISON: CR XR SHOULDER RT COMPLETE 2+V from 03/09/2020 FINDINGS: BONES: No acute fracture is present. No bony destructive lesion is seen. There is an os acromiale. JOINTS: No dislocation present. The glenohumeral joint is well maintained. Mild degenerative changes are again seen at the acromioclavicular joint. SOFT TISSUE: Normal. IMPRESSION: Mild degenerative changes of the AC joint. DATA REPOSITORY: RADIATION DOSE DELIVERED:
== END 2023-12-08 15:35 | disposition home or self-care (01) ==
LOC: DIORS 15:35
PROVIDERS: PCP Nurse Practitioner Family; Visit Provider Student in an Organized Health Care Education/Training Program
DX: M19.011 Primary osteoarthritis, right shoulder (principal)
CPT/HCPCS: 73030

== ENCOUNTER → 2024-01-26 02:33 | Outpatient (CLI) | payer OTHER, SELFPAY ==
--- NOTE | 2024-01-26 07:15 | DI.MRI_ITS ---
Exam(s) MR UPPER JOINT RT WO EXAM: MR UPPER JOINT RT WO CLINICAL HISTORY: rt shoulder pain,[id number].s/p rt rotator cuff repair,[id number]. TECHNIQUE: Multiplanar multisequence MRI was performed. COMPARISON: Plain films 08 December 2023, MRI 31 Oct 2021 FINDINGS: BONES: There is no fracture or contusion pattern. Postsurgical changes in humeral head. An os acrom iale is noted. JOINTS:The acromioclavicular joint shows mild spurring. The glenohumeral joint is normal. TENDONS: Supraspinatus: No focal tear. Infraspinatus: Unremarkable. Subscapularis: Stable muscle atrophy. Stable appearance of thin tendon. No focal tear. Teres Minor: Unremarkable. Biceps and [place]: Upper portion of biceps tendon not seen. The prior biceps tenodesis. MUSCLES: Unremarkable. GLENOID LABRUM: Unremarkable on this noncontrast examination. SOFT TISSUES: Unremarkable. OTHER: Subacromial and subdeltoid bursae . IMPRESSION: No evidence of acute tendon tear. Stable postsurgical changes. DATA REPOSITORY:
== END ==
PROVIDERS: PCP Nurse Practitioner Family; Visit Provider Student in an Organized Health Care Education/Training Program
DX: M25.511 Pain in right shoulder (principal); Z98.890 Other specified postprocedural states
CPT/HCPCS: 73221

== ENCOUNTER 2025-04-21 20:45 | Emergency (ER) | payer MEDICAID, SELFPAY ==
[2025-04-21] VITALS (17 sets, daily range): BP systolic 127–152; BP diastolic 87–106; PULSE 76–103; RESP 10–27; TEMP 36.1; O2SAT 94–99
--- NOTE | 2025-04-21 20:55 | ED.GENADUL_ITS ---
Discharge Plan Disposition Patient Disposition: Home Condition: Good Discharge Details Clinical Impression: Dysphagia Primary Care Provider: Mazin Perla ED Provider: Ever Womack [place] Meds and New Rx's Prescriptions: No Action methotrexate (PF) 20 mg/0.8 mL syringe 20 mg subcut QWEEK Skyrizi 75 mg/0.83 mL syringe See Rx Instructions subcut PER PKG DIR Rx Instructions: subcut PER PKG DIR Multaq 400 mg tablet 400 mg PO BID Rx Instructions: must administer with a meal/food alprazolam 0.5 mg tablet 0.5 mg PO ONCE PRN (Reason: claustrophobia) Qty: 2 0RF Rx Instructions: Take 1 60 minutes prior to MRI. May take an additional 1 if still anxious 30 minutes prior to MRI. metoprolol succinate 100 mg tablet extended release 24 hr 100 mg PO DAILY Qty: 90 3RF atorvastatin 20 mg tablet 20 mg PO DAILY folic acid 1 mg tablet 1 mg PO DAILY lorazepam 0.5 mg tablet 0.5 mg PO DAILY PRN Januvia 100 mg tablet 100 mg PO DAILY Multaq 400 mg tablet 400 mg PO BID Rx Instructions: must administer with a meal/food sildenafil 25 mg tablet 25 mg PO DAILY PRN Rx Instructions: administer 30 minutes to 4 hours before activity budesonide-formoterol [Symbicort] 160-4.5 mcg/actuation HFA aerosol inhaler 2 puff inhalation BID Trulicity 3 mg/0.5 mL pen injector 3 mg subcut QWEEK albuterol sulfate [Ventolin HFA] 90 mcg/actuation HFA aerosol inhaler 2 puff inhalation Q6H PRN albuterol sulfate [ProAir HFA] 90 mcg/actuation Hfa Aerosol Inhaler 2 puff INHALATION Q6H PRN Eliquis 5 mg tablet 5 mg PO BID Qty: 20 0RF Advair HFA 230-21 mcg/actuation Hfa Aerosol Inhaler 2 puff Inhalation BID acetaminophen 500 mg tablet 1,000 mg PO Q8H PRN Qty: 90 0RF Rx Instructions: Take two tablets up to every 8 hours as needed for pain Discharge Instructions Additional Instructions: You were seen in the ED for difficulty with swallowing over the last [address] scan of the neck and chest does not reveal any extrinsic mass compressing the esophagus or airway, normal-appearing airway and esophagus on CT. There are a couple of small lung nodules that you will need follow-up on with repeat imaging in the future. You should follow-up with primary care as planned, swallow study as previously recommended. Return to ED for inability to swallow, difficulty breathing, fever, significant pain with swallowing, other concerns. Referrals: Mazin Perla [Primary Care Provider] [facility] General Mode of arrival: ambulatory . Date/Time Provider Initiated Documentation: 04/21/25 20:55 . Limitations to Documentation: no limitations . Information obtained by: patient and RN notes reviewed . HPI Narrative: Patient patient presents to ED with complaint of difficulty swallowing that has been ongoing for close to a month and seeming to be worse each day. He is able to swallow soft food. He has a little bit of trouble with liquids in the sense that if he tries to drink too quickly or too much he feels like he gets vapor locked requiring him to burp and regurgitate some of the liquid for the rest of it we will go back. He denies any type of pain. He denies any fever or URI type symptoms. He is not short of breath any more so than usual. He does have a long smoking history and has been trying to cut back. He does have follow-up with primary care this coming week and was seen at [facility] ED a couple of days ago for similar symptoms. Reports that they simply referred him to primary care to get a swallowing study. Related Data Home Medications ?Medication ?Instructions ?Recorded ?Confirmed albuterol sulfate 90 mcg/actuation 2 puff inhalation Q 6H PRN 05/19/18 02/02/24 aerosol inhaler (ProAir HFA) apixaban 5 mg tablet (Eliquis) 5 mg PO BID #20 tabs 02/02/24 fluticasone propionate 230 2 puff inhalation BID 08/1702/02/24 mcg-salmeterol 21 mcg/actuation HFA inhaler (Advair HFA) risankizumab-rzaa 75 mg/0.83 mL See Rx Instructions connelly bcut PER PKG 08/17/20 02/02/24 subcutaneous syringe (Skyrizi) DIR acetaminophen 500 mg tablet 1,000 mg (2 x 500 mg) PO Q 8H PRN 08/22/20 02/02/24 pain #90 tabs methotrexate (PF) 20 mg/0.8 mL 20 mg subcut QWEEK 06/3002/02/24 subcutaneous syringe dronedarone 400 mg tablet (Multaq) 400 mg PO BID 11/2702/02/24 metoprolol succinate 100 mg 100 mg PO DAILY #90 tabs 1 07/12/22 02/02/24 tablet,extended release 24 hr albuterol sulfate 90 mcg/actuation 2 puff inhalation Q 6H PRN 12/01/23 02/02/24 aerosol inhaler (Ventolin HFA) atorvastatin 20 mg tablet 20 mg PO DAILY 12/01/23 0812/20 budesonide-formoterol HFA 160 2 puff inhalation BID 02/02/24 mcg-4.5 mcg/actuation aerosol inhaler (Symbicort) dronedarone 400 mg tablet (Multaq) 400 mg PO BID 11/3002/02/24 dulaglutide 3 mg/0.5 mL 3 mg subcut QWEEK 12/01/23 0 02/02/24 subcutaneous [facility] folic acid 1 mg tablet 1 mg PO DAILY 12/01/2302/01 lorazepam 0.5 mg tablet 0.5 mg PO DAILY PRN 12/01/23 02/02/24 sildenafil 25 mg tablet 25 mg PO DAILY PRN 12/01/23 02/02/24 sitagliptin phosphate 100 mg 100 mg PO DAILY 12/01/23 02/02/24 tablet (Januvia) alprazolam 0.5 mg tablet 0.5 mg PO ONCE PRN claustrop hobia 12/08/23 02/02/24 #2 tabs Previous Rx's ?Medication ?Instructions ?Recorded apixaban 5 mg tablet (Eliquis) 5 mg PO BID #20 tabs acetaminophen 500 mg tablet 1,000 mg (2 x 500 mg) PO Q 8H PRN 08/22/20 pain #90 tabs metoprolol succinate 100 mg 100 mg PO DAILY #90 tabs 1 07/12/22 tablet,extended release 24 hr alprazolam 0.5 mg tablet 0.5 mg PO ONCE PRN claustrop hobia 12/08/23 #2 tabs Allergies Allergy/AdvReac Type Severity Reaction Status Date / Time animal dander Allergy Other (See Verified 02/02/24 08:48 Comment) house dust Allergy Other (See Verified 02/02/24 08:48 Comment) mold Allergy Other (See Verified 02/02/24 08:48 Comment) pollen extracts Allergy Other (See Verified 02/02/24 08:48 Comment) amoxicillin (From Augmentin) AdvReac Intermediate Other (See Verified 02/02/24 08:48 Comment) cephalexin (From Keflex) AdvReac Intermediate YEAST Verified 02/02/24 08:48 INFECTION clavulanic acid (From AdvReac Intermediate Other (See Verified 02/02/24 08:48 Augmentin) Comment) clindamycin AdvReac upset Verified 02/02/24 08:48 stomach and severe pain at cardiac General MALINI: 3 Exam Narrative Exam Narrative: Const: WDWN male in NAD. VS per triage. HEENT: NC/AT. Normal facial exam. Neck: Supple. Trachea midline. No stridor. Normal voice. Lungs: Normal respiratory effort. Lungs are clear. Neuro: A+O x 3. Normal speech, mentation, gait. Cranial nerves II - XII grossly intact. No gross motor or sensory deficit. Medical Decision Making Patient presenting to ED with progressive difficulty swallowing. He has no pain or fever, no shortness of breath. He does have a long history of tobacco use. He is able to swallow soft solids and liquids though with liquids he is now having to drink them slower. Do not think he has food impaction. My concern would be for something extrinsic pushing on esophagus. Will plan to obtain CT of the neck and chest to evaluate for possibility of mass causing his symptomatology. Will check basic CBC and BMP. Labs with mildly elevated WBC. Glucose elevated but no gap and normal bicarb. CT scan with no mass, no appearing esophagus, airway and epiglottis. He does have a couple of lung nodules that should be followed since he is a heavy smoker. Possible small pocket of air in soft tissue anterior to C3-C4 but no fluid, swelling, enhancement. Patient without pain, fever and not an acute process. I think at this point follow up with PCP and swallow steady has previously recommended appropriate. Consider endoscopy if swallow study normal. Discussed with patient. Discharge home. Lab Data Lab results reviewed: Yes I reviewed the patient's lab results. Lab results narrative: see [facility] PFS All Active Problems (Updated 04/21/25 @ 23:31 by Ever Womack MD) Dysphagia (Acute) Atrial fibrillation (Chronic) Psoriasiform eczema (Acute) Psoriatic arthritis (Acute) Status post left rotator cuff repair (Acute 08/22/20) Arthroscopic repair of subscapularis, supraspinatus and infraspinatus Biceps tenotomy Right rotator cuff tear (Acute) Status post right rotator cuff repair (Chronic) DOS: 08/17/18 Arthroscopic repair of subscapularis and supraspinatus; biceps tenodesis Dr. Jaffe S/P revision RTC repair 02/17/2019 Diabetes (Chronic) Psoriasis (Chronic) Asthma (Chronic) History of excision of pilonidal cyst (Chronic) PTSD (post-traumatic stress disorder) (Chronic) Paroxysmal atrial fibrillation (Acute) F/U with Dr. Friedman Hypertension (Chronic) Medical History Biceps tendinitis of left shoulder Bursitis of left shoulder Right rotator cuff tear Family History Mother Myocardial infarct Father Heart disease History of angina Brother Sarcoidosis Sister Polycystic ovarian syndrome Social History Smoking/Tobacco Use Status: Current every day Tobacco Type: cigarettes Smoking packs per day: 1 Smoking cigarettes per day: 20.0 Years smoked: 35 Smoking pack- years: 35.00 Quit status: considering quitting Counseling given: patient declined Smoking risk assessment performed?: Yes Alcohol Intake: current Alcohol Intake frequency: holidays/special occasions only Alcohol type: wine Drug use: Daily Substance use type: marijuana Current gender identity: male Do you feel safe at home: Yes Do you feel safe in your relationship?: Yes
--- NOTE | 2025-04-21 21:15 | DI.CT_ITS ---
Exam(s) CT NECK CHEST W EXAM: CT NECK CHEST W CLINICAL HISTORY: progressive trouble swallowing/35+ yr smoking hx TECHNIQUE: Imaging Protocol: Axial computed tomography images with coronal and sagittal reformatted images were created and reviewed. Computer aided detection (CAD) was utilized. CONTRAST MATERIAL: Intravenous: Omnipaque 350Contrast volume:100 mL. COMPARISON: No exams were available for comparison FINDINGS: Tracheobronchial tree: Patent where visualized. No evidence of bronchiectasis. Pulmonary parenchyma: No consolidation or dominant measurable mass. There is a calcified granuloma in the superior segment of the right lower lobe. There are few scattered noncalcified pulmonary nodules present. They ranged up to 2 mm in size. Mediastinum and Martha: No dominant adenopathy or fluid collection. The esophagus is unremarkable. Thyroid gland: Unremarkable. Pleura: No effusion or pneumothorax. Heart: The heart is not dilated. Mild coronary artery calcification is present. No pericardial effusion. Aorta: Thoracic aorta non-dilated. Pulmonary arteries: Due to the timing of the bolus, the pulmonary arteries are insufficiently opacified on this examination to evaluate for pulmonary embolism. Upper abdomen: Unremarkable. Lymph nodes: Within normal limits. Bones: Within normal limits for the patient's age. Small pockets of air seen anterior to the C3 and CT 4 vertebral bodies. This may be associated with the patient's degenerative changes. No evidence of an abscess or fluid is seen in the region. Soft tissues: Unremarkable. Visualized intracranial structures: Within normal limits. Orbits and orbital soft tissues: Within normal limits. Visualized paranasal sinuses: There is opacification of several left ethmoid air cells. The remaining visualized paranasal sinuses and mastoid air cells are clear. Pharynx: Within normal limits. Larynx: Within normal limits. Retropharyngeal space: Within normal limits. Parotids/submandibular: Within normal limits. Thyroid gland: Within normal limits. Lymphadenopathy: There is scattered lymph nodes seen along the level one to level three all measuring less than 8 mm in short axis diameter which are physiologic in nature. Trachea: Within normal limits. Bones: Within normal limits for the patient's age. Carotids/Jugular: Within normal limits. Soft tissues: Within normal limits. IMPRESSION: 1. There is no acute pulmonary process. 2. There are few scattered pulmonary nodules with the largest measuring 2 mm. For high risk patients, for multiple solid noncalcified nodules with less than 6 mm in diameter, CT scan of the chest at 12 months is an option that will depend on estimated risk. (grade 1B; strong recommendation, moderate-quality evidence). (Noah et al., 2017) In low risk patients, for multiple solid noncalcified nodules smaller than 6 mm in diameter, no routine follow-up is recommended (grade 2B; weak recommendation, moderate-quality evidence). (Noah et al., 2017) 3. Air in the soft tissues anterior to the C3 and C4 vertebra. This is nonspecific but may be associated with the degenerative changes at this level. There is no evidence of fluid or an abscess. 4. The esophagus appears grossly unremarkable. 5. The preliminary [facility] report was reviewed. RADIATION DOSE DELIVERED: 957.93mGy.cm Total DLP 957.93mGy.cm Total DLP DATA REPOSITORY: All CT scans at this facility are submitted to the National Radiology Data Registry (NRDR) Dose Index Registry (DIR) with the [employer] (ACR). RADIATION OPTIMIZATION: All CT scans at this facility use at least one of these dose optimization techniques: automated exposure control; mA and/or kV adjustment per patient size (includes targeted exams where dose is matched to clinical indication); or iterative reconstruction.
[2025-04-21 22:03] LABS: Abs Immature Grans 0.14 10^3/uL (0.0-0.06); HCT 50.3 % (40.0-50.0); HGB 17.4 g/dL (13.5-17.5); Immature Grans % 1.1 %; MCH 31.6 pg (27.0-33.0); MCHC 34.6 % (32.0-36.0); MCV 91 fL (80-95); MPV 9.4 fL (8.0-11.0); Platelet Count 223 10^3/uL (130-400); RBC 5.51 10^6/uL (4.36-5.78); RDW 13.2 % (11.8-14.1); RDW-SD 44.3 fL; WBC 12.67 10^3/uL (4.4-10.8)
--- NOTE | 2025-04-21 22:09 | NUTRITION ---
Pt ambulatory from room 10 to room 4 in the interest of patient comfort. Placed on endodontist which shows atrial fibrillation with a rate ~ 80s. Pt explained that he was diagnosed a few years ago, there was lack of communication/follow up/lack of treatment so he is now in the throes of working with a new reimbursement liaison and they have plans to cardiovert him so on. Pt chatted with me as I started his IV, told me about his father's passing a year ago from [place]. Pt is pleasant, cooperative and a good historian
[2025-04-21 22:18] LABS: Anion Gap 7.6 mmol/L (3-11); BUN 16 mg/dL (7-18); CO2 30.4 mmol/L (21.0-32.0); Calcium 9.9 mg/dL (8.5-10.1); Chloride 98 mmol/L (98-107); Estimated GFR 104.51 (mL/min/1.73m2); Glucose 305 mg/dL (74-106); Potassium 4.3 mmol/L (3.5-5.1); Sodium 136 mmol/L (136-145)
[2025-04-21] MEDS: Normal Saline - Diluent 50 ML VIAL IJ (22:31)
[2025-04-21] MEDS: Normal Saline Flush 10 ML SYR IVP (22:31)
[2025-04-21] MEDS: Omnipaque 350 MG/ML 100 ML BTL IJ (22:32)
--- NOTE | 2025-04-21 23:15 | DI.[facility]_ITS ---
PROCEDURE INFORMATION: Exam: CT Neck With Contrast Exam date and time: 04/21/2025 10:26 PM Age: 54 years old Clinical indication: Progressive trouble swallowing; 35+ yr smoking HX TECHNIQUE: Imaging protocol: Computed tomography of the neck with contrast. 3D rendering (Not supervised by radiologist): MIP and/or 3D reconstructed images were created by the technologist. Contrast material: OMNI 350; Contrast volume: 100 ml; Contrast route: INTRAVENOUS (IV); COMPARISON: No relevant prior studies available. FINDINGS: Salivary glands: Normal. Glands are normal in size. Pharynx: Unremarkable. No significant tonsillar enlargement. Larynx: Unremarkable. Epiglottis is normal. Thyroid: Normal. No enlarged or calcified nodules. Trachea: Visualized trachea is unremarkable. Esophagus: Normal cervical esophagus by CT. Lungs: Unremarkable as visualized. Lymph nodes: Unremarkable. No lymphadenopathy. Bones/joints: Cervical spine degenerative changes. Soft tissues: No significant soft tissue swelling. Small air collections adjacent to the anterior C3 and C4 vertebral bodies of uncertain etiology (e.g. coronal images 48-49, series 19 / sagittal images 41-45, series 21). No prevertebral fluid. No focal soft tissue abscess. IMPRESSION: 1. The visualized airway is normal in caliber. Normal cervical esophagus by CT. 2. Small air collections adjacent to the anterior C3 and C4 vertebral bodies of uncertain etiology (e.g. coronal images 48-49, series 19 / sagittal images 41-45, series 21). No prevertebral fluid. No focal soft tissue abscess. PROCEDURE INFORMATION: Exam: CT Chest With Contrast; Diagnostic Exam date and time: 04/21/2025 10:26 PM Age: 54 years old Clinical indication: Progressive trouble swallowing; 35+ yr smoking HX TECHNIQUE: Imaging protocol: Diagnostic computed tomography of the chest with contrast. 3D rendering (Not supervised by radiologist): MIP and/or 3D reconstructed images were created by the technologist. Contrast material: OMNI 350; Contrast volume: 100 ml; Contrast route: INTRAVENOUS (IV); COMPARISON: CR XR CHEST 2V PA LATERAL 05/25/2018 5:01 PM FINDINGS: Lungs: No acute alveolar or ground glass infiltrate. A few scattered 2 mm nodules within the lateral left upper lobe (e.g. axial images 54, 82, 84, 89, series 15). Pleural spaces: No pleural fluid collection. No pneumothorax. Heart/mediastinum: No pericardial effusion. Coronary artery calcification. Normal thoracic esophagus by CT. Lymph nodes: No enlarged lymph nodes. Vasculature: Normal caliber thoracic aorta without dissection or aneurysm. Bones/joints: Spinal degenerative changes. Soft tissues: Unremarkable. IMPRESSION: 1. Normal thoracic esophagus by CT. 2. No acute pulmonary infiltrate or pleural fluid collection. 3. A few scattered 2 mm nodules within the lateral left upper lobe (e.g. axial images 54, 82, 84, 89, series 15). For patients at low risk (minimal or absent history of smoking and of other known risk factors), no routine follow-up is indicated. For patients at high risk (history of smoking or of other known risk factors), consider optional CT Chest at 12 months. (Reference: Noah) REFERENCES: Noah Mann, et al. Guidelines for Management of Incidental Pulmonary Nodules Detected on CT Images: From the Fleischner Society 2017. Radiology. 2017;284(1):228-243. Dictated and Authenticated by: Yosi Dugan MD. Orderin Vu Curtis MD
== END 2025-04-21 23:42 | disposition home or self-care (01) ==
PROVIDERS: Emergency Provider Emergency Medicine; PCP Nurse Practitioner Family
DX: R13.10 Dysphagia, unspecified (principal); Z72.0 Tobacco use
CPT/HCPCS: 99283; 99285; 36415; 70491; 80048; 71260; 85025; 87081; J3490